=== PATIENT | male | born 1965 | race Native Hawaiian/Other Pacific Islander ===

== ENCOUNTER 2021-10-06 20:50 | Emergency (ER) | payer BC ==
[~2021-10-06] VITALS: Ht 177.8 cm; Wt 122.5 kg
[~2021-10-06 20:50] MED LIST: BENICAR20 MG PO
[2021-10-06 22:19] VITALS: BP 168/106; TEMP 98.7
== END 2021-10-06 22:19 | disposition home or self-care (01) ==
LOC: ED 20:50
PROC: 0HQFXZZ Repair Right Hand Skin, External Approach (ICD-10-PCS; principal; 2021-10-06)
PROC: 2W3JX1Z Immobilization of Right Finger using Splint (ICD-10-PCS; 2021-10-06)
DX: S61.210A Laceration without foreign body of right index finger without damage to nail, initial encounter (principal); W29.8XXA Contact with other powered hand tools and household machinery, initial encounter; Y92.89 Other specified places as the place of occurrence of the external cause
CPT/HCPCS: 99282; J2001